=== PATIENT | male | born 1990 | race Caucasian/White ===

== ENCOUNTER 2019-07-16 13:05 | Emergency (ER) | payer BC ==
[~2019-07-16] VITALS: Ht 180.3 cm; Wt 104.3 kg
[2019-07-16 13:10] VITALS: BP 132/78
--- NOTE | 2019-07-16 13:11 | NUR ---
AMBULATED TO BED 5
--- NOTE | 2019-07-16 13:19 | NUR ---
29/M presents to ED with complaints of laceration to right palm below thumb. Pt states he cut his hand on a steel stud while working. No active bleeding noted. Laceration about 4cm. CMS intact. No deformity noted. VSS. Pt does not recall his last tetanus vaccination.
--- NOTE | 2019-07-16 13:23 | NUR ---
PT LAC CLEANED AND IRRIGATED WITH NORMAL SALINE AND 4X4 GUAZE PADS. RN NOTIFIED
[2019-07-16] MEDS ORDERED: LIDOCAINE MPF 1% 5 ML ONE (13:27)
[2019-07-16] MEDS ORDERED: BACITRACIN OINT 500 UNITS/GM PKT TP ONE ×2 (13:28→13:55)
[2019-07-16] MEDS ORDERED: LIDOCAINE MPF 1% 10 MG/ML VIAL INJ ONE (13:55)
[2019-07-16 14:29] VITALS: BP 132/78
== END 2019-07-16 14:30 | disposition home or self-care (01) ==
LOC: MED 13:05
DX: S61.411A Laceration without foreign body of right hand, initial encounter (principal); W26.8XXA Contact with other sharp object(s), not elsewhere classified, initial encounter; Y93.89 Activity, other specified; Y92.89 Other specified places as the place of occurrence of the external cause; Y99.8 Other external cause status
CPT/HCPCS: 12001; 90715; 99283; J2001